=== PATIENT | female | born 1965 ===

== ENCOUNTER 2025-02-26 05:28 | Inpatient (IN) | payer OTHER ==
[2025-02-19 14:16] VITALS: BP 147/87
[~2025-02-26] VITALS: Ht 160 cm; Wt 75.3 kg
[~2025-02-26 05:28] MED LIST: AMITRIPTYLINE H25 MG PO; COLESTIPOL; COZAAR50 MG PO; FARXIGA10 MG PO; FLEXERIL; LIPITOR20 MG; NEURONTIN800 MG PO; PEPCID40 MG PO; PROTONIX40 M1 PO; SYNTHROID175 MCG PO; TOPROL XL25 M1 PO
[2025-02-26] MEDS ORDERED: DEXAMETHASONE SODIUM PHOSPHATE 4 MG/ML VIAL ONE (07:57)
[2025-02-26] MEDS ORDERED: CEFAZOLIN SODIUM 1,000 MG VIAL ONE (09:20)
[2025-02-26] MEDS ORDERED: DEXAMETHASONE SODIUM PHOSPHATE 4 MG/ML VIAL IV ONE ×2 (10:30→13:30)
[2025-02-26] MEDS ORDERED: CEFAZOLIN SODIUM 1,000 MG VIAL IV ONE ×2 (10:30→13:30)
[2025-02-26] MEDS ORDERED: MORPHINE SULFATE 4 MG/ML VIAL IV ONE (13:20)
[2025-02-26] MEDS ORDERED: Calcium Carbonate 1 TAB TABLET PO SCH (14:19)
[2025-02-26] MEDS ORDERED: ONDANSETRON HCL 2 MG/ML VIAL IV PRN (14:30)
[2025-02-26] MEDS ORDERED: ENALAPRILAT DIHYDRATE 1.25 MG/ML VIAL IV PRN (14:30)
[2025-02-26] MEDS ORDERED: ACETAMINOPHEN 500 MG GEL..CAP PO SCH (17:00)
[2025-02-26] MEDS ORDERED: TRAMADOL HCL 50 MG TABLET PO SCH (17:00)
[2025-02-26 17:07] VITALS: BP 133/84; O2SAT 99
[2025-02-26] MEDS ORDERED: PANTOPRAZOLE SODIUM 40 MG/VIAL VIAL IV PUSH SCH (21:00)
[2025-02-27 01:20] VITALS: BP 120/77; O2SAT 98
[2025-02-27] MEDS ORDERED: GABAPENTIN 800 MG TABLET PO SCH (09:00)
[2025-02-27] MEDS ORDERED: METOPROLOL SUCCINATE 25 MG TAB.SR.24H PO SCH (09:00)
[2025-02-27] MEDS ORDERED: AMITRIPTYLINE HCL 25 MG TABLET PO SCH (09:00)
[2025-02-27] MEDS ORDERED: ATORVASTATIN CALCIUM 20 MG TABLET PO SCH (09:00)
[2025-02-27] MEDS ORDERED: LOSARTAN POTASSIUM 50 MG TABLET PO SCH (09:00)
[2025-02-27] MEDS ORDERED: LEVOTHYROXINE SODIUM 175 MCG TABLET PO SCH (09:00)
[2025-02-27] MEDS ORDERED: CYCLOBENZAPRINE HCL 5 MG TABLET PO SCH (09:00)
== END 2025-02-27 10:50 | disposition home or self-care (01) | DRG 627 ==
LOC: CIR.AMB 05:28 → O/R 14:27 → SURH 14:27
PROVIDERS: ADMIT Surgery; ATTEND Surgery
PROC: 0GTL0ZZ Resection of Right Superior Parathyroid Gland, Open Approach (ICD-10-PCS; 2025-02-26)
PROC: 0GTM0ZZ Resection of Left Superior Parathyroid Gland, Open Approach (ICD-10-PCS; 2025-02-26)
PROC: 0GTP0ZZ Resection of Left Inferior Parathyroid Gland, Open Approach (ICD-10-PCS; principal; 2025-02-26 09:20)
DX: D35.1 Benign neoplasm of parathyroid gland (principal); E21.0 Primary hyperparathyroidism